=== PATIENT | male | born 1990 | race Caucasian/White ===

== ENCOUNTER 2020-10-25 21:31 | Emergency (ER) | payer SELFPAY ==
[2020-10-25] MEDS ORDERED: Lidocaine 1% with EPINEPHrine 1:100,000 50 ML MDV INFILT ONE (22:25)
[2020-10-25] MEDS ORDERED: Bacitracin Oint 1 GM U/D Packet TOP ONE (22:26)
[2020-10-25] MEDS ORDERED: Diphtheria,Pertussis(Acell),Tetanus Vaccine 0.5 ML Syringe IM ONE (22:43)
--- NOTE | 2020-10-25 22:46 | EDM.PDOC ---
ED HPI GENERAL MEDICAL PROBLEM - General Chief Complaint: Laceration Stated Complaint: LACERATION TO ARM Time Seen by Provider: 10/25/20 21:45 Source of Information: Reports: Patient, Family History Limitations: Reports: No Limitations - History of Present Illness INITIAL COMMENTS - FREE TEXT/NARRATIVE: 30-year-old male with a laceration to the lateral aspect of his left forearm just distal to the elbow. He struck it against a sharp piece of metal that was sticking out of his car door. It is a 6 cm laceration into the subcutaneous tissue that now has controlled bleeding. No significant deep underlying structures involved. His tetanus is not current. Onset: Sudden Duration: Hour(s): (Within the last hour) Location: Reports: Upper Extremity, Left Associated Symptoms: Reports: No Other Symptoms - Related Data Allergies Allergy/AdvReac Type Severity Reaction Status Date / Time No Known Allergies Allergy Verified 10/25/20 23:09 Home Meds: Home Meds NK [No Known Home Meds] 10/25/20 [History] ED ROS GENERAL - Review of Systems Review Of Systems: See Below Constitutional: Denies: Fever, Chills Respiratory: Denies: Shortness of Breath Cardiovascular: Denies: Chest Pain GI/Abdominal: Denies: Abdominal Pain, Nausea, Vomiting Neurological: Reports: No Symptoms. Denies: Paresthesia (No distal paresthesias) ED EXAM, SKIN/RASH Exam: See Below Exam Limited By: No Limitations General Appearance: Alert, No Apparent Distress Head: Atraumatic Respiratory/Chest: No Respiratory Distress Extremities: Other (Exam is otherwise limited the left extremity. Patient is a 6 cm somewhat irregular laceration along the lateral aspect of the proximal forearm, radial side.) Neurological: Alert, Oriented Course - Vital Signs Last Recorded V/S: Last Vital Signs Temp 97.7 F 10/25/20 23:04 Pulse 84 10/25/20 23:04 Resp 16 10/25/20 23:04 BP 131/67 10/25/20 23:04 Pulse Ox 98 10/25/20 23:04 - Orders/Labs/Meds Meds: Medications Discontinued Medications Generic Name Dose Route Start Last Admin Trade Name Freq PRN Reason Stop Dose Admin Bacitracin 1 dose 10/25/20 22:26 10/25/20 23:10 Bacitracin Oint 1 Gm U/D Packet TOP 10/25/20 22:27 1 dose ONETIME ONE Administration Diphtheria/Tetanus/Acell Pertussis 0.5 ml 10/25/20 22:43 10/25/20 23:06 Diphtheria,Pertussis(Acell),Tetanus Vaccine 0.5 Ml Syringe IM 10/25/20 22:44 0.5 ml .ONCE ONE Administration Lidocaine/Epinephrine 30 ml 10/25/20 22:25 10/25/20 23:10 Lidocaine 1% With Epinephrine 1:100,000 50 Ml Mdv INFILT 10/25/20 22:26 30 ml ONETIME ONE Administration - Re-Assessments/Exams Free Text/Narrative Re-Assessment/Exam: 10/25/20 22:45 The area was infiltrated with 1% lidocaine with epinephrine, cleansed thoroughly with saline, and 8 interlocking running sutures were used, 4-0 Ethilon, to close the wound. Topical bacitracin and a pressure dressing was applied and he was given a Tdap booster. Sutures can come out in 9 days. He should keep the wound covered and clean while healing, recheck sooner if concerns of infection or not healing satisfactorily. Departure - Departure Time of Disposition: 23:17 Disposition: Home, Self-Care 01 Clinical Impression: Laceration of left forearm Qualifiers: Encounter type: initial encounter Qualified Code(s): S51.812A - Laceration without foreign body of left forearm, initial encounter - Discharge Information Instructions: Laceration Care, Adult Referrals: PCP,None [Primary Care Provider] - Forms: ED Department Discharge Care Plan Goals: Keep wound covered and clean while healing, increase activity as tolerated and sutures can be removed in 9 days. Recheck sooner if concerns of infection or not healing satisfactorily. Sepsis Event Note (ED) - Focused Exam Vital Signs: Vital Signs Temp Pulse Resp BP Pulse Ox 10/25/20 23:04 97.7 F 84 16 131/67 98 10/25/20 22:07 97.7 F 84 16 131/67 98
== END 2020-10-25 23:18 | disposition home or self-care (01) ==
LOC: JP.ED 21:31
DX: S51.812A Laceration without foreign body of left forearm, initial encounter (principal); Z23 Encounter for immunization; W22.09XA Striking against other stationary object, initial encounter
CPT/HCPCS: 12002; 90471; 90715; 99282-25